=== PATIENT | male | born 2000 ===

== ENCOUNTER 2021-06-20 19:45 | Emergency (ER) | payer OTHER ==
[2021-06-20] MEDS ORDERED: NA CHLORIDE 0.9% 1,000 ML ONE ×2 (20:36→23:49)
[2021-06-20] MEDS ORDERED: NA CHLORIDE 0.9% 500 ML ONE (20:36)
[2021-06-20] MEDS ORDERED: MORPHINE 4 MG/ML SYR ONE ×2 (20:36→22:58)
[2021-06-20] MEDS ORDERED: FAMOTIDINE 20 MG/2 ML VIAL IV ONE (20:36)
[2021-06-20] MEDS ORDERED: ONDANSETRON 4 MG/2 ML VIAL ONE (20:36)
[2021-06-20 20:38] LABS: Absolute Lymphocytes (CBC) 0.9 K/uL (0.7-4.9); Lymphocytes % 5.4 % (15.3-44.8); MPV 7.9 fL (7.6-11.3); RBC Red Blood Cell Count 5.61 M/uL (4.33-5.43)
[2021-06-20 20:53] LABS: ALT/SGPT 22 U/L (12-78); AST/SGOT 14 U/L (15-37); Albumin 4.4 g/dL (3.4-5.0); Alkaline Phosphatase 58 U/L (45-117); BUN Blood Urea Nitrogen 15 mg/dL (7-18); Bicarbonate 28 mmol/L (21-32); Bilirubin Total 0.8 mg/dL (0.2-1.0); Glucose Level 111 mg/dL (74-106); Lipase 79 U/L (73-393); Potassium 3.9 mmol/L (3.5-5.1); Protein, Total 7.8 g/dL (6.4-8.2); Sodium Level 138 mmol/L (136-145)
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
[2021-06-20 21:58] LABS: White Blood Cell Scan OK (OK)
[2021-06-20 21:59] LABS: Blood Morphology Comment NOT SEEN (NOT SEEN); Platelet Estimate ADEQ
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
[2021-06-20 23:56] LABS: SARS-COV-2 RT PCR NEGATIVE (NEGATIVE)
[2021-06-21 01:00] LABS: Urine Blood Trace-intact (Negative); Urine Glucose Negative (Negative); Urine Protein Negative (Negative); Urine Specific Gravity 1.015 (1.005-1.030)
[2021-06-21] MEDS ORDERED: MORPHINE 4 MG/ML SYR ONE (02:03)
[2021-06-21 02:46] VITALS: BP 117/67; TEMP 98.1; O2SAT 100
== END 2021-06-21 02:09 | disposition short-term general hospital (02) ==
LOC: ER 19:45
DX: R10.84 Generalized abdominal pain (principal); R11.2 Nausea with vomiting, unspecified; Z20.822 Contact with and (suspected) exposure to COVID-19
CPT/HCPCS: 85025; 36415; 82565; 81003; 83690; 80053; 0240U; 74177; 99285; Q9967; J2405; J3490; J7030; J7040